=== PATIENT | female | born 1995 | race Hispanic/Latino ===

== ENCOUNTER 2018-03-22 19:04 | Emergency (ER) | payer BC ==
[2018-03-22 19:07] VITALS: BP 130/80; PULSE 74; RESP 16; TEMP 97.5; O2SAT 98
--- NOTE | 2018-03-22 20:05 | ED PDOC ---
HPI: Psych/Substance Abuse Time Seen by Provider: 03/22/18 19:10 Chief Complaint (Nursing): Alcohol Ingestion Chief Complaint (Provider): Alcohol Intoxication History Per: Patient History/Exam Limitations: no limitations Onset/Duration Of Symptoms: Hrs Current Symptoms Are (Timing): Still Present Modifying Factor(s): Alcohol Additional Complaint(s): Sheeba Lemus is a 22 year old female with a past medical history of asthma who was brought to the ED by EMS for public intoxication. Patient states that she was drinking alcohol tonight and walking home when she was picked up by EMS. She reports that she feels fine and adds that she has no injuries. Patient states that her mother is coming to pick her up. She denies any medical complaints i ncluding chest pain, abdominal pain, nausea, or vomiting. PMD: none provided Past Medical History Reviewed: Historical Data, Nursing Documentation, Vital Signs Vital Signs: Last Vital Signs Temp 97.5 F L 03/22/18 19:04 Pulse 74 03/22/18 19:04 Resp 16 03/22/18 19:04 BP 130/80 03/22/18 19:04 Pulse Ox 98 03/22/18 19:04 - Medical History PMH: Asthma - Surgical History Surgical History: No Surg Hx - Family History Family History: States: Unknown Family Hx - Social History Current smoker - smoking cessation education provided: No Alcohol: Social Drugs: Denies Review of Systems ROS Statement: Except As Marked, All Systems Reviewed And Found Negative Cardiovascular: Negative for: Chest Pain Gastrointestinal: Negative for: Nausea, Vomiting, Abdominal Pain Physical Exam - Reviewed Nursing Documentation Reviewed: Yes Vital Signs Reviewed: Yes - Physical Exam Appears: Positive for: Non-toxic, No Acute Distress (mildly intoxicated appearing ) Head Exam: Positive for: ATRAUMATIC (no head injury), NORMAL INSPECTION, NORMOCE PHALIC Skin: Positive for: Normal Color, Warm, DRY Eye Exam: Positive for: EOMI, Normal appearance, PERRL ENT: Positive for: Normal ENT Inspection Neck: Positive for: Normal, Painless ROM Cardiovascular/Chest: Positive for: Regular Rate, Rhythm. Negative for: Murmur Respiratory: Positive for: Normal Breath Sounds. Negative for: Respiratory Distress Gastrointestinal/Abdominal: Positive for: Normal Exam, Soft. Negative for: Tenderness Extremity: Positive for: Normal ROM. 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 Negative for: Motor/Sensory Deficits - ECG O2 Sat by Pulse Oximetry: 98 (RA) Pulse Ox Interpretation: Normal Medical Decision Making Medical Decision Making: Time: 20:07 A/P: 22 year old female with mild alcohol intoxication --patient is awake and alert with a steady gait --Suitable for discharge to familys custody Scribe Attestation: Documented by, Toya Matt acting as a scribe for Jamison Hayes MD. Provider Scribe Attestation: All medical record entries made by the Scribe were at my direction and personally dictated by me. I have reviewed the chart and agree that the record accurately reflects my personal performance of the history, physical exam, medical decision making, and the department course for this patient. I have also personally directed, reviewed, and agree with the discharge instructions and disposition. Disposition - Clinical Impression Clinical Impression: Alcohol abuse - Disposition Referrals: [facility] [Outside] Disposition: Routine/Home Disposition Time: 20:07 Condition: GOOD Instructions: Effects of Alcohol on Your Health Forms: [employer] ([place])
== END 2018-03-22 21:39 | disposition home or self-care (01) ==
LOC: H.ER 19:04
DX: F10.129 Alcohol abuse with intoxication, unspecified (principal); J45.909 Unspecified asthma, uncomplicated